=== PATIENT | female | born 1970 | race African-American/Black ===

== ENCOUNTER 2024-03-13 19:19 | Inpatient (IN) | payer MEDICARE ==
[2024-03-13 20:59] LABS: #Basophils Less than 0.03 10x3/uL (0.0-0.2); %Basophils 0.2 % (0.0-1.0); %Eosinophils 3.4 % (0.0-10.0); %Lymphocytes 11.3 % (21.0-51.0); %Monocytes 10.5 % (0.0-10.0); %Neutrophils 74.1 % (42.0-75.0); Hematocrit 42.5 % (36.0-47.0); Hemoglobin 12.7 g/dL (12.0-16.0); Mean Corpuscular HGB CONC 29.9 g/dL (32.0-36.0); Mean Corpuscular Hemoglobin 29.3 pg (27.0-31.0); Mean Corpuscular Volume 98.2 fL (78.0-98.0); Mean Platelet Volume 10.8 fL (7.4-10.4); Platelet Count 228 10x3/uL (130-400); RBC Distribution Width 15.8 % (11.5-14.5); Red Blood Cell (RBC) Count 4.33 mill/uL (4.20-5.40)
[2024-03-13 21:20] LABS: ALT (SGPT) 48 U/L (8-55); AST (SGOT) 32 U/L (5-34); Albumin 3.1 g/dL (3.5-5.0); Alkaline Phosphatase 86 U/L (40-110); Anion Gap 15 mmol/L (10-20); BUN (Urea Nitrogen) 13 mg/dL (9.8-20.1); Bilirubin, Total 0.4 mg/dL (0.2-1.2); Calc. Creatinine Clearance 0 mL/min (70-130); Calcium 9.1 mg/dL (7.8-10.44); Carbon Dioxide 27 mmol/L (22-29); Chloride 107 mmol/L (98-107); Estimated GFR 67; Globulin 4.1 g/dL (2.4-3.5); Glucose 109 mg/dL (70-105); Potassium 4.3 mmol/L (3.5-5.1); Protein, Total 7.2 g/dL (6.0-8.3); Sodium 145 mmol/L (136-145)
[2024-03-13 21:25] LABS: Troponin I 0.017 ng/mL (< 0.028)
[2024-03-14] MEDS ORDERED: Morphine 4 MG/ML VIAL ONE (01:16)
[2024-03-14] MEDS ORDERED: Enoxaparin 100 MG (1 mL) SYRINGE ONE (02:37)
[2024-03-14] MEDS ORDERED: Enoxaparin 80 MG (0.8 mL) SYRINGE ONE (02:38)
[2024-03-14] MEDS ORDERED: Albuterol 200 PUFF (6.7GM INHALER) INH PRN (03:35)
[2024-03-14] MEDS ORDERED: Lorazepam 0.5 MG TAB PO PRN (03:35)
[2024-03-14] MEDS ORDERED: Ondansetron PF 4 MG/2 ML Vial IVP PRN (03:36)
[2024-03-14] MEDS: Clindamycin/D5W 900 MG in Premix 1 BAG IVPB SCH (05:05)
[2024-03-14 05:16] VITALS: BMI 94.3
[2024-03-14] MEDS: Acetaminophen 325 MG TAB PO PRN (05:23)
[2024-03-14] MEDS: Clindamycin/D5W 600 MG in Premix 1 BAG IVPB SCH (05:24)
[2024-03-14] MEDS: Furosemide 40 MG (4 mL) VIAL SLOW IVP SCH ×2 (05:24)
[2024-03-14] MEDS: Carvedilol 6.25 MG TAB PO SCH (08:26)
[2024-03-14] MEDS: Heparin 5,000 UNITS/ML VIAL SC SCH (08:27)
[2024-03-14] MEDS: Fluticasone Propionate Nasal Spray 16 gm Bottle NASAL SCH (08:27)
[2024-03-14] MEDS: Acetaminophen 325 MG TAB ONE (10:08)
[2024-03-14] MEDS: Furosemide 40 MG (4 mL) VIAL ONE (10:09)
[2024-03-14] MEDS: Clindamycin/D5W 600 mg/50 ml Premix Bag ONE (10:09)
[2024-03-14] MEDS: Mometasone 200 MCG/Formoterol 5 MCG 120 PUFF INHALER INH SCH (10:13)
[2024-03-14] MEDS: HYDROcodone/Acetaminophen 10/325 mg Tablet PO PRN (16:55)
[2024-03-15 05:42] LABS: #Basophils 0.03 10x3/uL (0.0-0.2); %Basophils 0.3 % (0.0-1.0); %Eosinophils 3.2 % (0.0-10.0); %Monocytes 11.5 % (0.0-10.0); %Neutrophils 72.1 % (42.0-75.0); Hematocrit 42.3 % (36.0-47.0); Mean Corpuscular HGB CONC 28.4 g/dL (32.0-36.0); Mean Corpuscular Hemoglobin 29.4 pg (27.0-31.0); Mean Corpuscular Volume 103.7 fL (78.0-98.0); Mean Platelet Volume 10.6 fL (7.4-10.4); Platelet Count 212 10x3/uL (130-400); RBC Distribution Width 15.6 % (11.5-14.5); Red Blood Cell (RBC) Count 4.08 mill/uL (4.20-5.40)
[2024-03-15 05:52] LABS: Anion Gap 12 mmol/L (10-20); BUN (Urea Nitrogen) 14 mg/dL (9.8-20.1); Calc. Creatinine Clearance 228 mL/min (70-130); Calcium 8.8 mg/dL (7.8-10.44); Carbon Dioxide 28 mmol/L (22-29); Chloride 104 mmol/L (98-107); Estimated GFR 58; Glucose 104 mg/dL (70-105); Sodium 139 mmol/L (136-145)
[2024-03-15] MEDS: Saccharomyces boulardii 250 MG CAP PO SCH (08:45)
[2024-03-15 13:14] LABS: Actual Bicarbonate (HCO3a) 33.6 mEq/L (22-28); Base Excess (BEa) 1.7 mEq/L (-2.0 to +3.0); Calcium, Ionized (arterial) 1.21 mmol/L (1.12-1.30); Carboxyhemoglobin (COHb) 1.1 gm% (0.0-3.0); Hematocrit-ABG 37 % (36.0-47.0); Hemoglobin (Hb) 12.6 g/dL (12.0-16.0); O2 Tension (PaO2), arterial 66.3 mmHg (80.0-100.0); Potassium - ABG Lab 4.98 mmol/L (3.70-5.30)
[2024-03-15 13:16] LABS: CO2 Tension 101.9 mmHg (35.0-45.0); Puncture Site Right Radial; pH, Arterial 7.136 (7.35-7.45)
[2024-03-16 05:54] LABS: Anion Gap 8 mmol/L (10-20); BUN (Urea Nitrogen) 15 mg/dL (9.8-20.1); Calc. Creatinine Clearance 285 mL/min (70-130); Calcium 8.8 mg/dL (7.8-10.44); Carbon Dioxide 36 mmol/L (22-29); Chloride 99 mmol/L (98-107); Estimated GFR 75; Glucose 98 mg/dL (70-105); Potassium 4.9 mmol/L (3.5-5.1); Sodium 138 mmol/L (136-145)
[2024-03-16 10:15] LABS: Actual Bicarbonate (HCO3v) 36.2 mEq/L (22-28); Base Excess 6.3 mEq/L (-2.0 to +3.0); Calcium, Ionized (venous) 1.16 mmol/L (1.16-1.32); Chloride (VBG) 97 mmol/L (98-106); Hematocrit-VBG 38 % (36.0-47.0); Hemoglobin (Hb) 12.8 g/dL (11.7-16.0); Potassium (VBG) 4.75 mmol/L (3.70-5.30); Sodium 141 mmol/L (133-146); pH (venous) 7.258 (7.32-7.43)
[2024-03-16] MEDS: cefTRIAXone\\ROCEPHIN 2 GM in Sodium Chloride 0.9% 100 ML IVPB SCH (11:46)
[2024-03-17 08:28] LABS: Hematocrit-ABG 36 % (36.0-47.0); Hemoglobin (Hb) 12.4 g/dL (12.0-16.0); O2 Tension (PaO2), arterial 99.7 mmHg (80.0-100.0)
[2024-03-17 08:45] LABS: CO2 Tension 76.9 mmHg (35.0-45.0); Puncture Site RRA
[2024-03-17 08:46] LABS: ALV-art Gradient 53.725 mmHg (0-20)
[2024-03-18] MEDS: hydrOXYzine 25 MG TAB PO SCH (01:43)
[2024-03-18 05:07] LABS: Base Excess 16.5 mEq/L (-2.0 to +3.0); Chloride (VBG) 92 mmol/L (98-106); Hematocrit-VBG 37 % (36.0-47.0); Hemoglobin (Hb) 12.6 g/dL (11.7-16.0); Potassium (VBG) 4.16 mmol/L (3.70-5.30); Sodium 140 mmol/L (133-146); pH (venous) 7.492 (7.32-7.43)
[2024-03-18 05:09] LABS: Actual Bicarbonate (HCO3v) 42.4 mEq/L (22-28)
[2024-03-18 06:16] LABS: #Basophils 0.05 10x3/uL (0.0-0.2); %Basophils 0.7 % (0.0-1.0); %Eosinophils 5.4 % (0.0-10.0); %Lymphocytes 20.9 % (21.0-51.0); %Monocytes 13.6 % (0.0-10.0); Hematocrit 37.4 % (36.0-47.0); Hemoglobin 11.4 g/dL (12.0-16.0); Mean Corpuscular HGB CONC 30.5 g/dL (32.0-36.0); Mean Corpuscular Hemoglobin 28.6 pg (27.0-31.0); Mean Platelet Volume 11.2 fL (7.4-10.4); Platelet Count 203 10x3/uL (130-400); RBC Distribution Width 14.8 % (11.5-14.5); Red Blood Cell (RBC) Count 3.98 mill/uL (4.20-5.40)
[2024-03-18 06:38] LABS: Anion Gap 14 mmol/L (10-20); BUN (Urea Nitrogen) 15 mg/dL (9.8-20.1); Calc. Creatinine Clearance 338 mL/min (70-130); Calcium 9.4 mg/dL (7.8-10.44); Carbon Dioxide 40 mmol/L (22-29); Chloride 93 mmol/L (98-107); Estimated GFR 96; Glucose 79 mg/dL (70-105); Potassium 4.2 mmol/L (3.5-5.1); Sodium 143 mmol/L (136-145)
[2024-03-18] MEDS: hydrOXYzine 25 MG TAB PO PRN (13:05)
[2024-03-18] MEDS: acetaZOLAMIDE Sodium 500 mg Vial IVP SCH (15:44)
[2024-03-18] MEDS: Sterile Water 10 ML ONE (15:44)
[2024-03-18] MEDS: Docusate 100 MG CAP PO PRN (21:29)
[2024-03-18] MEDS: Simethicone Chewable 80 MG TAB PO PRN (21:29)
[2024-03-19] MEDS: Sterile Water 10 ML ONE (08:48)
[2024-03-19 09:08] LABS: #Basophils 0.06 10x3/uL (0.0-0.2); %Basophils 0.8 % (0.0-1.0); %Eosinophils 6.1 % (0.0-10.0); %Lymphocytes 23.2 % (21.0-51.0); %Monocytes 15.2 % (0.0-10.0); %Neutrophils 54.2 % (42.0-75.0); Hematocrit 40.4 % (36.0-47.0); Hemoglobin 12.3 g/dL (12.0-16.0); Mean Corpuscular HGB CONC 30.4 g/dL (32.0-36.0); Mean Corpuscular Hemoglobin 29.1 pg (27.0-31.0); Mean Corpuscular Volume 95.5 fL (78.0-98.0); Mean Platelet Volume 10.7 fL (7.4-10.4); Platelet Count 195 10x3/uL (130-400); RBC Distribution Width 15.2 % (11.5-14.5); Red Blood Cell (RBC) Count 4.23 mill/uL (4.20-5.40)
[2024-03-19 09:15] LABS: Base Excess 17.3 mEq/L (-2.0 to +3.0); Calcium, Ionized (venous) 1.11 mmol/L (1.16-1.32); Chloride (VBG) 90 mmol/L (98-106); Hematocrit-VBG 40 % (36.0-47.0); Hemoglobin (Hb) 13.5 g/dL (11.7-16.0); Potassium (VBG) 3.65 mmol/L (3.70-5.30); Sodium 142 mmol/L (133-146); pH (venous) 7.402 (7.32-7.43)
[2024-03-19 09:16] LABS: Actual Bicarbonate (HCO3v) 46.1 mEq/L (22-28)
[2024-03-19 09:24] LABS: Anion Gap 12 mmol/L (10-20); BUN (Urea Nitrogen) 18 mg/dL (9.8-20.1); Calc. Creatinine Clearance 257 mL/min (70-130); Calcium 9.8 mg/dL (7.8-10.44); Carbon Dioxide 45 mmol/L (22-29); Chloride 91 mmol/L (98-107); Estimated GFR 72; Glucose 114 mg/dL (70-105); Potassium 3.6 mmol/L (3.5-5.1); Sodium 144 mmol/L (136-145)
[2024-03-19] MEDS: hydrOXYzine 25 MG TAB PO PRN (21:46)
[2024-03-20 08:48] LABS: #Basophils 0.05 10x3/uL (0.0-0.2); %Basophils 0.5 % (0.0-1.0); %Eosinophils 5.1 % (0.0-10.0); %Lymphocytes 23.2 % (21.0-51.0); %Monocytes 15.7 % (0.0-10.0); %Neutrophils 54.9 % (42.0-75.0); Hematocrit 40.5 % (36.0-47.0); Hemoglobin 12.6 g/dL (12.0-16.0); Mean Corpuscular HGB CONC 31.1 g/dL (32.0-36.0); Mean Corpuscular Hemoglobin 29.7 pg (27.0-31.0); Mean Corpuscular Volume 95.5 fL (78.0-98.0); Platelet Count 192 10x3/uL (130-400); RBC Distribution Width 15.7 % (11.5-14.5); Red Blood Cell (RBC) Count 4.24 mill/uL (4.20-5.40)
[2024-03-20 09:04] LABS: Anion Gap 12 mmol/L (10-20); BUN (Urea Nitrogen) 22 mg/dL (9.8-20.1); Calc. Creatinine Clearance 249 mL/min (70-130); Calcium 9.5 mg/dL (7.8-10.44); Carbon Dioxide 40 mmol/L (22-29); Chloride 92 mmol/L (98-107); Estimated GFR 70; Glucose 107 mg/dL (70-105); Potassium 4.1 mmol/L (3.5-5.1); Sodium 140 mmol/L (136-145)
[2024-03-20] MEDS: Phenazopyridine HCl 100 MG TAB PO SCH (17:22)
[2024-03-21] MEDS: Polyethylene Glycol 3350 17 GM Packet PO PRN (06:31)
[2024-03-21 06:48] LABS: #Basophils 0.04 10x3/uL (0.0-0.2); %Basophils 0.5 % (0.0-1.0); %Eosinophils 6.4 % (0.0-10.0); %Lymphocytes 22.1 % (21.0-51.0); %Monocytes 15.4 % (0.0-10.0); %Neutrophils 55.1 % (42.0-75.0); Hematocrit 39.6 % (36.0-47.0); Hemoglobin 12.2 g/dL (12.0-16.0); Mean Corpuscular HGB CONC 30.8 g/dL (32.0-36.0); Mean Corpuscular Hemoglobin 28.4 pg (27.0-31.0); Mean Corpuscular Volume 92.1 fL (78.0-98.0); Mean Platelet Volume 11.3 fL (7.4-10.4); Platelet Count 177 10x3/uL (130-400); RBC Distribution Width 15.5 % (11.5-14.5)
[2024-03-21 06:54] LABS: Anion Gap 12 mmol/L (10-20); BUN (Urea Nitrogen) 25 mg/dL (9.8-20.1); Calc. Creatinine Clearance 232 mL/min (70-130); Calcium 9.4 mg/dL (7.8-10.44); Carbon Dioxide 40 mmol/L (22-29); Chloride 95 mmol/L (98-107); Estimated GFR 66; Glucose 115 mg/dL (70-105); Potassium 3.6 mmol/L (3.5-5.1); Sodium 143 mmol/L (136-145)
[2024-03-21 16:59] VITALS: BP 121/65; TEMP 98.1
== END 2024-03-21 17:00 | DRG 291 ==
LOC: ERS 19:19 → T4-B 03-14 03:39 → IMCU/EMU 03-15 15:32
PROVIDERS: ADMIT Internal Medicine; ATTEND Internal Medicine
PROC: 5A09457 Assistance with Respiratory Ventilation, 24-96 Consecutive Hours, Continuous Positive Airway Pressure (ICD-10-PCS; principal; 2024-03-15)
DX: I11.0 Hypertensive heart disease with heart failure (principal); G93.41 Metabolic encephalopathy; I50.33 Acute on chronic diastolic (congestive) heart failure; J96.21 Acute and chronic respiratory failure with hypoxia; E66.2 Morbid (severe) obesity with alveolar hypoventilation; L03.115 Cellulitis of right lower limb; M19.90 Unspecified osteoarthritis, unspecified site; J44.9 Chronic obstructive pulmonary disease, unspecified; Z98.890 Other specified postprocedural states; Z79.899 Other long term (current) drug therapy; Z79.01 Long term (current) use of anticoagulants
CPT/HCPCS: 36415; 36600; 71045; 80048; 80053; 82805; 83605; 83880; 84484; 85025; 85379; 87040; 93005; 93970; 94660; 96365; 96372; 96375; J0696; J1120; J1644; J1650; J1940; J2270; J3490